=== PATIENT | male | born 1960 | race Caucasian/White ===

== ENCOUNTER 2020-12-06 15:39 | Emergency (ER) | payer BC ==
[~2020-12-06] VITALS: Ht 172.7 cm; Wt 131.8 kg
[2020-12-06 15:47] VITALS: Ht 172.7 cm; Wt 131.8 kg
[2020-12-06 16:09] LABS: BASOPHILS 0.6 % (0-2); EOSINOPHILS 0.3 % (0-7); HEMATOCRIT 42.3 % (42.0-54.0); LYMPHOCYTES 9.3 % (15-50); MCH 28.3 pg (26.0-34.0); MCHC 33.1 g/dL (31.0-37.0); MCV 85.7 fL (80.0-100.0); MEAN PLATELET VOLUME 6.8 fL (7.4-10.4); MONOCYTES 7.3 % (2-11); NEUTROPHILS 82.5 % (40-80); PLATELET COUNT 217 10x3/uL (130-400); RBC 4.93 10x6/uL (4.20-6.10); RDW 15.3 % (11.5-14.5)
[2020-12-06 16:17] LABS: APTT 24.9 SECONDS (22.8-39.4); INR 1.25 (0.85-1.17); PROTIME 14.5 SECONDS (11.6-15.0)
[2020-12-06 16:21] LABS: CALC OSMOLALITY 287 mosm/kg (275-300); CALCIUM 9.2 mg/dL (8.5-10.1); CARBON DIOXIDE 25.8 mmol/L (21.0-32.0); CHLORIDE - SERUM 103 mmol/L (98-107); CREATININE - SERUM 1.3 mg/dL (0.6-1.3); GLUCOSE 158 mg/dL (74-106); POTASSIUM - SERUM 3.6 mmol/L (3.5-5.1); SODIUM 141 mmol/L (136-145); UREA NITROGEN 25 mg/dL (7-18); eGFR NON AFRICAN AMERICAN 59 mL/min (90-120)
[2020-12-06 16:36] LABS: ALBUMIN 3.9 g/dL (3.4-5.0); ALKALINE PHOSPHATASE 66 U/L (30-120); ALT (SGPT) 111 U/L (10-68); BILIRUBIN - TOTAL 0.29 mg/dL (0.2-1.3); CKMB 7.7 U/L (0.0-3.6); MAGNESIUM - SERUM 2.5 mg/dL (1.8-2.4); PROTEIN - SERUM 7.5 g/dL (6.4-8.2); THYROID STIMULATING HORMONE 0.91 uIU/mL (0.36-3.74)
[2020-12-06 16:38] LABS: CREATINE KINASE 1428 UL (21-232); TROPONIN-I < 0.017 ng/mL (0.000-0.060)
[2020-12-06 17:16] LABS: BILIRUBIN NEGATIVE (NEGATIVE); KETONE NEGATIVE (NEGATIVE); NITRITE NEGATIVE (NEGATIVE); UROBILINOGEN NORMAL mg/dL (< 2)
[2020-12-06 17:33] LABS: UDS - AMPHET NEGATIVE QUAL (NEGATIVE); UDS - BARB NEGATIVE QUAL (NEGATIVE); UDS - BENZO NEGATIVE QUAL (NEGATIVE); UDS - COCAINE NEGATIVE QUAL (NEGATIVE); UDS - OPIATE NEGATIVE QUAL (NEGATIVE); UDS - PCP NEGATIVE QUAL (NEGATIVE); UDS - THC NEGATIVE QUAL (NEGATIVE)
[2020-12-06] MEDS ORDERED: LIPITOR20 MG PO (18:40)
[2020-12-06] MEDS ORDERED: TRAZODONE HCL100 MG PO (18:41)
[2020-12-06] MEDS ORDERED: TEMAZEPAM30 MG PO (18:41)
[2020-12-06] MEDS ORDERED: VITAMIN B-6100 MG PO (18:42)
[2020-12-06] MEDS ORDERED: CENTRUM MEN'S1 EACH PO (18:43)
[2020-12-06 22:43] VITALS: BP 157/85
== END 2020-12-06 22:09 ==
LOC: D.ER 15:39
PROVIDERS: Family Medicine
DX: R56.9 Unspecified convulsions (principal); M25.512 Pain in left shoulder; M62.82 Rhabdomyolysis; R11.2 Nausea with vomiting, unspecified

== ENCOUNTER 2020-12-13 10:57 | Emergency (ER) | payer BC ==
[~2020-12-13] VITALS: Ht 172.7 cm; Wt 131.8 kg
[~2020-12-13 10:57] MED LIST: CENTRUM MEN'S1 EACH PO; LIPITOR20 MG PO; TEMAZEPAM30 MG PO; TRAZODONE HCL100 MG PO; VITAMIN B-6100 MG PO
[2020-12-13 11:02] VITALS: BP 180/93; Ht 172.7 cm; Wt 131.8 kg
[2020-12-13] MEDS ORDERED: KEPPRA750 MG PO ×2 (11:05→12:01)
[2020-12-13 11:16] LABS: BASOPHILS 0.9 % (0-2); HEMATOCRIT 47.8 % (42.0-54.0); HEMOGLOBIN 15.3 g/dL (13.5-17.5); LYMPHOCYTES 37.2 % (15-50); MCH 28.2 pg (26.0-34.0); MCV 88.2 fL (80.0-100.0); MEAN PLATELET VOLUME 6.9 fL (7.4-10.4); MONOCYTES 8.3 % (2-11); NEUTROPHILS 51.6 % (40-80); RBC 5.42 10x6/uL (4.20-6.10); RDW 15.2 % (11.5-14.5); WBC 13.2 10x3/uL (4.8-10.8)
[2020-12-13 11:26] LABS: ANION GAP 29.8 mmol/L (8-16); CALCIUM 9.6 mg/dL (8.5-10.1); CARBON DIOXIDE 13.9 mmol/L (21.0-32.0); CREATININE - SERUM 1.4 mg/dL (0.6-1.3); POTASSIUM - SERUM 3.7 mmol/L (3.5-5.1)
[2020-12-13 11:33] LABS: BILIRUBIN - TOTAL 0.41 mg/dL (0.2-1.3); PROTEIN - SERUM 8.4 g/dL (6.4-8.2)
[2020-12-13 11:35] LABS: PLATELET COUNT 340 10x3/uL (130-400)
[2020-12-13 12:34] LABS: BACTERIA FEW HPF (NONE SEEN); BILIRUBIN NEGATIVE (NEGATIVE); KETONE NEGATIVE (NEGATIVE); NITRITE NEGATIVE (NEGATIVE); SQUAMOUS EPITHELIAL RARE HPF (0-4); UROBILINOGEN NORMAL mg/dL (< 2); WHITE CELLS - URINE RARE HPF (0-1)
== END 2020-12-13 12:19 | disposition home or self-care (01) ==
LOC: D.ER 10:57
PROVIDERS: Emergency Medicine
DX: R56.9 Unspecified convulsions (principal)

== ENCOUNTER 2021-01-03 19:10 | Inpatient (IN) | payer OTHER, BC ==
[~2021-01-03] VITALS: Ht 172.7 cm; Wt 131.5 kg
[~2021-01-03 19:10] MED LIST changes: +KEPPRA750 MG PO
[2021-01-03 20:07] LABS: BASOPHILS 0.9 % (0-2); EOSINOPHILS 2.9 % (0-7); HEMATOCRIT 40.8 % (42.0-54.0); HEMOGLOBIN 13.8 g/dL (13.5-17.5); LYMPHOCYTES 25.9 % (15-50); MCH 28.7 pg (26.0-34.0); MCHC 33.7 g/dL (31.0-37.0); MEAN PLATELET VOLUME 6.7 fL (7.4-10.4); MONOCYTES 7.9 % (2-11); NEUTROPHILS 62.4 % (40-80); RDW 14.9 % (11.5-14.5); WBC 6.9 10x3/uL (4.8-10.8)
[2021-01-03 20:11] LABS: PLATELET COUNT 209 10x3/uL (130-400)
[2021-01-03] MEDS ORDERED: ASPIRIN81 MG PO (20:15)
[2021-01-03 20:16] LABS: APTT 26.8 SECONDS (22.8-39.4); INR 1.13 (0.85-1.17); PROTIME 13.5 SECONDS (11.6-15.0)
[2021-01-03] MEDS ORDERED: CALCIUM 500 +1 EAC3 PO (20:16)
[2021-01-03] MEDS ORDERED: PROTONIX20 MG PO (20:17)
[2021-01-03 20:18] LABS: D-DIMER-QUANTITATIVE 0.42 ug/mLFEU (0.20-0.54)
[2021-01-03] MEDS ORDERED: UNISOM SLEEP AI25 MG PO (20:18)
[2021-01-03 20:20] LABS: CALC OSMOLALITY 285 mosm/kg (275-300); CALCIUM 8.5 mg/dL (8.5-10.1); CARBON DIOXIDE 26.5 mmol/L (21.0-32.0); CHLORIDE - SERUM 106 mmol/L (98-107); GLUCOSE 97 mg/dL (74-106); POTASSIUM - SERUM 3.8 mmol/L (3.5-5.1); SODIUM 142 mmol/L (136-145); UREA NITROGEN 22 mg/dL (7-18); eGFR NON AFRICAN AMERICAN 80 mL/min (90-120)
[2021-01-03 20:30] VITALS: BP 168/80
[2021-01-03 20:38] LABS: ALBUMIN 3.7 g/dL (3.4-5.0); ALKALINE PHOSPHATASE 64 U/L (30-120); ALT (SGPT) 131 U/L (10-68); BILIRUBIN - TOTAL 0.32 mg/dL (0.2-1.3); C-REACTIVE PROTEIN 0.9 mg/dL (0.0-0.9); PRO BNP 26 pg/mL (0-125); PROTEIN - SERUM 7.5 g/dL (6.4-8.2); THYROID STIMULATING HORMONE 2.29 uIU/mL (0.36-3.74); TROPONIN-I < 0.017 ng/mL (0.000-0.060)
[2021-01-03 21:30] VITALS: BP 152/95
[2021-01-03 22:30] VITALS: BP 130/103
[2021-01-03 23:30] VITALS: BP 158/81
[2021-01-04] VITALS (9 sets, daily range): BP systolic 100–171; BP diastolic 60–103; BMI 44.1
[2021-01-04 09:39] LABS: BASOPHILS 0.3 % (0-2); EOSINOPHILS 0 % (0-7); HEMATOCRIT 42.5 % (42.0-54.0); HEMOGLOBIN 14.4 g/dL (13.5-17.5); LYMPHOCYTES 8.6 % (15-50); MCH 28.9 pg (26.0-34.0); MCHC 33.9 g/dL (31.0-37.0); MCV 85.4 fL (80.0-100.0); MEAN PLATELET VOLUME 6.7 fL (7.4-10.4); MONOCYTES 0.5 % (2-11); NEUTROPHILS 90.6 % (40-80); PLATELET COUNT 238 10x3/uL (130-400); RBC 4.97 10x6/uL (4.20-6.10); RDW 14.8 % (11.5-14.5); WBC 8.2 10x3/uL (4.8-10.8)
[2021-01-04 09:47] LABS: INR 1.16 (0.85-1.17); PROTIME 13.7 SECONDS (11.6-15.0)
[2021-01-04 09:54] LABS: ALBUMIN 3.6 g/dL (3.4-5.0); ANION GAP 14.8 mmol/L (8-16); BILIRUBIN - TOTAL 0.48 mg/dL (0.2-1.3); CALCIUM 8.7 mg/dL (8.5-10.1); CREATININE - SERUM 1.2 mg/dL (0.6-1.3); POTASSIUM - SERUM 3.8 mmol/L (3.5-5.1); PROTEIN - SERUM 7.4 g/dL (6.4-8.2)
[2021-01-04 20:30] LABS: BILIRUBIN NEGATIVE (NEGATIVE); KETONE NEGATIVE mg/dL (< 1+); NITRITE NEGATIVE (NEGATIVE); PH 5.5 (5.0-8.0); SQUAMOUS EPITHELIAL <1 HPF (0-4); UROBILINOGEN NORMAL mg/dL (< 2); WHITE CELLS - URINE 1 HPF (0-1)
[2021-01-04] MEDS ORDERED: TRAZODONE HCL100 MG PO (22:14)
[2021-01-05] VITALS (13 sets, daily range): BP systolic 103–146; BP diastolic 56–85
[2021-01-05 05:28] LABS: BASOPHILS 0.1 % (0-2); EOSINOPHILS 0 % (0-7); HEMATOCRIT 40.7 % (42.0-54.0); HEMOGLOBIN 13.6 g/dL (13.5-17.5); LYMPHOCYTES 6.7 % (15-50); MCH 28.8 pg (26.0-34.0); MCHC 33.5 g/dL (31.0-37.0); MCV 85.9 fL (80.0-100.0); MEAN PLATELET VOLUME 6.9 fL (7.4-10.4); MONOCYTES 2.3 % (2-11); NEUTROPHILS 90.9 % (40-80); PLATELET COUNT 244 10x3/uL (130-400); RBC 4.74 10x6/uL (4.20-6.10)
[2021-01-05 05:43] LABS: WBC 14.7 10x3/uL (4.8-10.8)
[2021-01-05 06:20] LABS: ALBUMIN 3.7 g/dL (3.4-5.0); ALKALINE PHOSPHATASE 71 U/L (30-120); ALT (SGPT) 115 U/L (10-68); BILIRUBIN - TOTAL 0.29 mg/dL (0.2-1.3); CALC OSMOLALITY 290 mosm/kg (275-300); CALCIUM 8.9 mg/dL (8.5-10.1); CARBON DIOXIDE 22.8 mmol/L (21.0-32.0); CHLORIDE - SERUM 108 mmol/L (98-107); POTASSIUM - SERUM 4.2 mmol/L (3.5-5.1); PROTEIN - SERUM 7.6 g/dL (6.4-8.2); SODIUM 143 mmol/L (136-145); UREA NITROGEN 23 mg/dL (7-18); eGFR NON AFRICAN AMERICAN 80 mL/min (90-120)
[2021-01-05 06:31] LABS: GLUCOSE 139 mg/dL (74-106)
--- NOTE | 2021-01-05 07:00 | NUR ---
PATIENT LEFT WITH STAFF FOR SURGERY WITH CONSENTS SIGNED. STABLE AT TIME OF LEAVING FLOOR. MEDICATIONS AND BELONGINGS TAKEN TO ICU 7 DUE TO TRANSFER POST SURGERY.
[2021-01-06] VITALS (13 sets, daily range): BP systolic 123–167; BP diastolic 66–103
--- NOTE | 2021-01-06 08:00 | NUR ---
ALERT AND ORIENTED X4. GOOD ROM OF EXT. 4. JOSHUA INTACT TO SCALP. DENIES ANY PAIN OR DISOCMFORT. HAND GRASP EQUAL. ENCOURAGED TO USE CALL LIGHT FOR ASSSIT. IVF AND MONITORING AT THIS TIME ARTIRIAL LINE INTACT.
[2021-01-06 08:05] LABS: ALBUMIN 3.3 g/dL (3.4-5.0); ALKALINE PHOSPHATASE 59 U/L (30-120); ALT (SGPT) 98 U/L (10-68); BILIRUBIN - TOTAL 0.31 mg/dL (0.2-1.3); CALC OSMOLALITY 293 mosm/kg (275-300); CALCIUM 8.4 mg/dL (8.5-10.1); CARBON DIOXIDE 26.4 mmol/L (21.0-32.0); CHLORIDE - SERUM 110 mmol/L (98-107); CREATININE - SERUM 0.9 mg/dL (0.6-1.3); GLUCOSE 118 mg/dL (74-106); POTASSIUM - SERUM 3.8 mmol/L (3.5-5.1); PROTEIN - SERUM 6.6 g/dL (6.4-8.2); SODIUM 145 mmol/L (136-145); UREA NITROGEN 25 mg/dL (7-18); eGFR NON AFRICAN AMERICAN > 90 mL/min (90-120)
[2021-01-06 08:15] LABS: BASOPHILS 0.1 % (0-2); EOSINOPHILS 0 % (0-7); HEMATOCRIT 36.9 % (42.0-54.0); HEMOGLOBIN 12.2 g/dL (13.5-17.5); LYMPHOCYTES 5.6 % (15-50); MCH 28.3 pg (26.0-34.0); MEAN PLATELET VOLUME 7.3 fL (7.4-10.4); MONOCYTES 5.4 % (2-11); NEUTROPHILS 88.9 % (40-80); PLATELET COUNT 218 10x3/uL (130-400); RBC 4.29 10x6/uL (4.20-6.10); RDW 15.3 % (11.5-14.5); WBC 15.3 10x3/uL (4.8-10.8)
--- NOTE | 2021-01-06 10:00 | NUR ---
DR. MONCADA HERE WITH NEW ORDERS NOTED. GODINEZ CATH DISCONTINUED AND ARTERIAL LINE DISCOMTINUED WITH PRESSURE DRESSING TO RIGHT WRIST. STANDING AT BEDSIDE WITH GOOD TRUNK CONTROL AND AMBULATING WITH SBA. DENIES ANY VERTIGO AT THIS TIME.ENCOURAGED TO USE CALL LIGHT FOR ASSIT.
--- NOTE | 2021-01-06 12:15 | NUR ---
REPORT CALLED TO HAROON REYES. TRANSFERED TO 2225. STABLE AT TIME OF TRANSFER NORCO GIVEN FOR PAIN 12/28.
--- NOTE | 2021-01-06 12:45 | NUR ---
RECEIVED TO ROOM 2225 VIA WC FROM ICU. A/O X3. BALANCE IS GOOD WTIH TRANSFER. AT BEDSIDE. DENIES NEEDS.
--- NOTE | 2021-01-06 17:15 | NUR ---
CALLED TO ROOM. PATIENT HAVING SEIZURE LIKE ACTIVITY, NO RESPONSIVE AND TENSED UPWITH JAW CLAMPED. C/O UNABLE TO BREATHE. BP 189/103 AT THIS TIME. GIVEN ATIVAN IVP FOR SEIZURES. DR. MONCADA NOTIFIED OF ACTIVITY. NEW ORDERS RECEIVED. NOTIFIED OF SAME.
--- NOTE | 2021-01-06 18:21 | NUR ---
SITTING UP ON SIDE OF BED COMPLETELY RESPONSIVE TO STAFF. DENIES NEEDS. NO CHANGES NOTED.
--- NOTE | 2021-01-06 20:30 | NUR ---
PATIENT UPSET AND AGITATED. STATES HE NEEDS SLEEP AND NEEDS HIS HOME MEDS. WANTS TELEMENTRY TAKEN OFF. STATES. "DONT HAVE HEART PROBLEMS,TAKE IT OFF". TELEMENTRY REMOVED PER PATIENT REQUEST AND RETURNED TO CELERY TIER IN ICU. DIRECTOR OF TAX SERVICES CALLED AND ORDERS RECEIVED TO RESTAT HOME MED TRAZADONE AND RESTORIL. PATIENT INFORMED
--- NOTE | 2021-01-06 23:30 | NUR ---
I have reviewed this patient and I concur with the Shift Assessment completed by the Licensed Practical Nurse today this shift.
[2021-01-07] VITALS: BP 107/49
[2021-01-07 04:00] VITALS: BP 133/65
[2021-01-07 06:09] LABS: BASOPHILS 0 % (0-2); EOSINOPHILS 0 % (0-7); HEMATOCRIT 36.3 % (42.0-54.0); MCH 28.4 pg (26.0-34.0); MCV 86.1 fL (80.0-100.0); MEAN PLATELET VOLUME 7.1 fL (7.4-10.4); MONOCYTES 5.8 % (2-11); NEUTROPHILS 84.2 % (40-80); PLATELET COUNT 192 10x3/uL (130-400); RBC 4.21 10x6/uL (4.20-6.10); RDW 15.4 % (11.5-14.5); WBC 11.5 10x3/uL (4.8-10.8)
--- NOTE | 2021-01-07 07:40 | NUR ---
IN BED SITTING UP. AT BEDSIDE. BED LOW POSITION, CALL LIGHT IN REACH. IV INFUSING PER MAR. DENIES NEEDS AT THIS TIME. WILL CONTINUE TO MONITOR.
[2021-01-07 07:57] LABS: ALBUMIN 3.1 g/dL (3.4-5.0); ALKALINE PHOSPHATASE 61 U/L (30-120); ALT (SGPT) 100 U/L (10-68); BILIRUBIN - TOTAL 0.31 mg/dL (0.2-1.3); CALC OSMOLALITY 288 mosm/kg (275-300); CALCIUM 8.6 mg/dL (8.5-10.1); CARBON DIOXIDE 27.5 mmol/L (21.0-32.0); CHLORIDE - SERUM 108 mmol/L (98-107); CREATININE - SERUM 0.8 mg/dL (0.6-1.3); GLUCOSE 121 mg/dL (74-106); POTASSIUM - SERUM 3.7 mmol/L (3.5-5.1); PROTEIN - SERUM 6.7 g/dL (6.4-8.2); SODIUM 143 mmol/L (136-145); UREA NITROGEN 22 mg/dL (7-18); eGFR NON AFRICAN AMERICAN > 90 mL/min (90-120)
[2021-01-07 08:27] VITALS: BP 109/46
[2021-01-07 13:02] VITALS: BP 121/77
--- NOTE | 2021-01-07 15:18 | NUR ---
PATIENT CALLED NURSE IN TO ROOM BECAUSE HE DEVELOPED A BLACK EYE ON THE RIGHT SIDE. WHEN INQUIRED ABOUT IF ANYTHING HAPPEND, PATIENT STATED HE COULD HAVE ROLLED IN TO THE BED RAIL WHILE HE WAS SLEEPING. DENIES ANY PAIN AT THIS TIME AND REFUSED AN ICE PACK. SJ SAID SHE DID NOT NOTICE IT YESTERDAY AND ONLY NOTICED IT STARTING THIS AFTERNOON. DENIES CHANGES IN VISION. ALERT AND ORIENTED. FREE FROM SIGNS OF DISTRESS.
--- NOTE | 2021-01-07 17:28 | NUR ---
CHECKED ON PATIENT RIGHT EYE. LOOKS SLIGHTLY MORE RED. LU DEE APN LOOKED AT THE EYE. PT DENIES VISUAL CHANGES. SENT DR. MONCADA A TEXT INFORMING HIM.
[2021-01-07 20:00] VITALS: BP 155/77
--- NOTE | 2021-01-07 20:15 | NUR ---
SITTING UP ON SIDE OF BED. COMPLAINTS OF INCISIONAL PAIN. NORCO 2 TABS GIVEN PER MAR. CLIPS INTACT TO TOP OF HEAD WITHOUT REDNESS OR EDEMA NOTED. NO DRAINAGE NOTED. RIGHT EYE WITH BRUSING AND EDEMA NOTED. AT BEDSIDE.
[2021-01-08] VITALS: BP 113/62
--- NOTE | 2021-01-08 02:08 | NUR ---
I have reviewed this patient and I concur with the Shift Assessment completed by the Licensed Practical Nurse today this shift.
[2021-01-08 04:00] VITALS: BP 138/73
[2021-01-08 06:06] LABS: BASOPHILS 0.1 % (0-2); EOSINOPHILS 0 % (0-7); HEMATOCRIT 36.5 % (42.0-54.0); HEMOGLOBIN 12.2 g/dL (13.5-17.5); LYMPHOCYTES 12.3 % (15-50); MCH 28.6 pg (26.0-34.0); MCHC 33.4 g/dL (31.0-37.0); MCV 85.5 fL (80.0-100.0); MEAN PLATELET VOLUME 7.4 fL (7.4-10.4); MONOCYTES 7.3 % (2-11); NEUTROPHILS 80.3 % (40-80); PLATELET COUNT 192 10x3/uL (130-400); RBC 4.27 10x6/uL (4.20-6.10); RDW 14.8 % (11.5-14.5); WBC 9.4 10x3/uL (4.8-10.8)
[2021-01-08 06:44] LABS: ALBUMIN 2.8 g/dL (3.4-5.0); ALKALINE PHOSPHATASE 57 U/L (30-120); BILIRUBIN - TOTAL 0.32 mg/dL (0.2-1.3); CALC OSMOLALITY 290 mosm/kg (275-300); CARBON DIOXIDE 26.8 mmol/L (21.0-32.0); CHLORIDE - SERUM 108 mmol/L (98-107); CREATININE - SERUM 0.9 mg/dL (0.6-1.3); GLUCOSE 128 mg/dL (74-106); POTASSIUM - SERUM 3.6 mmol/L (3.5-5.1); PROTEIN - SERUM 6.3 g/dL (6.4-8.2); SODIUM 143 mmol/L (136-145); UREA NITROGEN 23 mg/dL (7-18); eGFR NON AFRICAN AMERICAN > 90 mL/min (90-120)
[2021-01-08 06:45] LABS: ALT (SGPT) 128 U/L (10-68)
[2021-01-08 09:25] VITALS: BP 137/80
[2021-01-08 12:45] VITALS: BP 141/69
--- NOTE | 2021-01-08 12:50 | NUR ---
I have reviewed this patient and I concur with the Shift Assessment completed by the Licensed Practical Nurse today this shift.
--- NOTE | 2021-01-08 14:10 | NUR ---
WALKED 250FT CGA
[2021-01-08 14:32] VITALS: Ht 172.7 cm; Wt 131.5 kg
[2021-01-08] MEDS ORDERED: HCTZ25 MG PO (15:01)
[2021-01-08] MEDS ORDERED: KEPPRA1000 MG PO (15:01)
[2021-01-08] MEDS ORDERED: PREDNISONE10 MG PO (15:02)
--- NOTE | 2021-01-08 16:07 | MORECARE ---
CASE MANAGEMENT DISCHARGE SUMMARY PATIENT: EMILIE MARMOLEJO UNIT: [id number] ADM DATE: 01/03/21 AGE: 60 : 56 SEX: M ROOM/BED: D.2225 AUTHOR: KIM,DOC PHYSICIAN: REFERRING PHYSICIAN: SANDY LEE DO DATE OF SERVICE: 01/08/21 Case Management Discharge Planning Summary COMMENTS ENTERED DATE: 01/08/21 16:03 CT COMMENT TYPE: Discharge Planning REVIEWER: Minnie Mena CM met with patient at bedside after obtaining verbal consent. CM discussed availability / needs of home health, REHAB and medical equipment. Patient has VA benefits. I have talked with Brandon at the [place] at [phone]. They will get home health pt and ot set up for patient. I am faxing orders to her at [phone]. Patient has cane at home and states no other needs. DCP REVIEW SUMMARY ANTICIPATED D/C DATE: EXPECTED LOS : CASE STATUS: DCP Initiated INITIAL REVIEW: 01/03/2021 INITIAL REVIEWER: Minnie Mena FINAL DISCHARGE DISPOSITION: : FINAL REVIEWER: FINAL REVIEW DATE: DCP Focus Questions & Answers DCP Screen QUESTION: ANSWER High Risk Factors: : Hosp related to CHF, COPD, DM, End Stage Ds, CVA, CA DCP Evaluation QUESTION: ANSWER Patient's ability to cope with chronic illness : d. No chronic illness Would patient like to participate in any Care Coordination programs (if applicable): : Not applicable Mental health screen: : No mental health history DCP Re-evaluation QUESTION: ANSWER Would patient like to participate in any Care Coordination programs (if applicable): : Not applicable PATIENT: EMILIE MARMOLEJO ENCOUNTER: [id number] MEDICAL RECORD#: [id number] ADMISSION DATE: 01/03/2021 DISCHARGE DATE: ATTENDING MD: SANDY ALCANTAR : AGE: 60 MARITAL STATUS: M DC PLAN ID: [id number] FACILITY: [facility] PRINTED ON: 01/08/21 16:07 CT All edits/amendments must be made on the electronic document DICTATION DATE: 01/08/211606 REAL ESTATE SALESPERSON: TRU 01/08/211606 RPT#: [id number] DC DATE: STATUS: ADM IN [facility] [address] [place] [address] END OF REPORT
--- NOTE | 2021-01-08 16:29 | NUR ---
OT NOTE: CHECKED ON PT THIS DATE..PT RECENTLY HAD CRANIOTOMY WITH EXCISION OF TUMOR ON 01/06. PRIOR TO SURGERY, PTS L HAND WAS MODERATELY EFFECTED. PT HAD GOOD MOVEMENT AND GOOD BRAKER PASSENGER TRAIN STRENGTH, HOWEVER, HIS COORDINATION WAS IMPAIRED IN L HAND. TODAY PT PRESENTS WITH CONTINUED IMPAIREMENT IN COORDINATION AND FINE MOTOR SKILLS. CONTINUES TO EXHIBIT GOOD BRAKER PASSENGER TRAIN STRENGTH, BUT FINE MOTOR SKILLS ARE SLIGHTLY IMPAIRED. D/W PT AND , AND WILL PROVIDE FINE MOTOR COORDINATION EXS FOR PT, HE IS TO BE DCD TODAY. CHAVA TORRES, OTR/L
--- NOTE | 2021-01-08 16:39 | NUR ---
PATIENT DC HOME, WENT OVER PATIENT DC PAPERWORK AND FOLLOW UP APPOINTMENTS, CALLED DR MONCADA'S OFFICE IN [facility] TO SCRIPT, IV DC WITH CATHETER INTACT, PATIENT ROLLED DOWN IN WC BY ENGINEERING TECHNICIAN PARKING AND PATIENT
--- NOTE | 2021-01-08 19:03 | NUR ---
OT NOTE: PT COMPLETED ADL MOB WITH SBA-CGA. PT COMPLETED TOILETING WITH SBA. PT COMPLETED CLOTHING MANAGEMENT WITH SBA. PT REQUIRED MIN A FOR DONNING SOCKS. PT COMPLETED HAIR GROOMING AT SINK WITH SBA-CGA. PT COMPLETED ORAL CARE WITH SBA-CGA. [phone] THANK YOU, MERLE LOPEZ
--- NOTE | 2021-01-09 16:28 | MORECARE ---
CASE MANAGEMENT DISCHARGE SUMMARY PATIENT: EMILIE MARMOLEJO UNIT: [id number] ADM DATE: 01/03/21 AGE: 60 : 56 SEX: M ROOM/BED: D.2225 AUTHOR: KIM,DOC PHYSICIAN: REFERRING PHYSICIAN: SANDY LEE DO DATE OF SERVICE: 01/09/21 Case Management Discharge Planning Summary COMMENTS ENTERED DATE: 01/08/21 16:03 CT COMMENT TYPE: Discharge Planning REVIEWER: Minnie Mena CM met with patient at bedside after obtaining verbal consent. CM discussed availability / needs of home health, REHAB and medical equipment. Patient has VA benefits. I have talked with Brandon at the [place] at [phone]. They will get home health pt and ot set up for patient. I am faxing orders to her at [phone]. Patient has cane at home and states no other needs. DCP REVIEW SUMMARY ANTICIPATED D/C DATE: EXPECTED LOS : CASE STATUS: DCP Complete INITIAL REVIEW: 01/03/2021 INITIAL REVIEWER: Minnie Mena FINAL DISCHARGE DISPOSITION: : FINAL REVIEWER: FINAL REVIEW DATE: DCP Focus Questions & Answers DCP Screen QUESTION: ANSWER High Risk Factors: : Hosp related to CHF, COPD, DM, End Stage Ds, CVA, CA DCP Evaluation QUESTION: ANSWER Patient's ability to cope with chronic illness : d. No chronic illness Would patient like to participate in any Care Coordination programs (if applicable): : Not applicable Mental health screen: : No mental health history DCP Re-evaluation QUESTION: ANSWER Would patient like to participate in any Care Coordination programs (if applicable): : Not applicable PATIENT: EMILIE MARMOLEJO ENCOUNTER: [id number] MEDICAL RECORD#: [id number] ADMISSION DATE: 01/03/2021 DISCHARGE DATE: 01/08/2021 ATTENDING MD: SANDY ALCANTAR : AGE: 60 MARITAL STATUS: M DC PLAN ID: [id number] FACILITY: [facility] PRINTED ON: 01/09/21 16:27 CT All edits/amendments must be made on the electronic document DICTATION DATE: 01/09/211626 ESL INSTRUCTOR: TRU 01/09/211626 RPT#: [id number] DC DATE:01/08/21 STATUS: DIS IN [facility] [address] [place] [address] END OF REPORT
--- NOTE | 2021-01-10 09:15 | OP ---
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 POSTOPERATIVE DIAGNOSIS: Right posterior frontal brain tumor. PROCEDURE: Right frontal craniotomy for resection of brain tumor. DESCRIPTION OF TECHNIQUE: After induction of general endotracheal anesthesia, the patient was placed in Hernandez head pins. The scalp was prepped and draped in the usual sterile fashion. After infiltration of 1:100,000 epinephrine with 1% lidocaine, bicoronal incision was carried out primarily on the right side. Randy clips applied to the scalp for hemostasis. Several jae holes were created along the midline and then 2 were created 4 cm off the midline. The jae holes were connected with a [employer] drill with a side cutting bur. The skull flap was elevated without difficulty. The dura was opened in a cruciate manner with bipolar cautery and #11 blade. Upon opening the dura, there was obvious tumor on the surface of one particular gyrus. The ame was cauterized. 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 Next, a CUSA aspirator and magnification were used to remove the entirety of the tumor until the interface between the tumor and edematous white matter was obtained throughout the entire perimeter. A gross total resection was obtained. Meticulous hemostasis was maintained throughout the wound. The wound was irrigated with copious amounts of lukewarm saline irrigant solution. The dura was reapproximated with interrupted 4-0 Nurolon suture. The skull flap was replaced with titanium plates and screws. The scalp was reapproximated with interrupted 2-0 Vicryl suture. The skin was closed with alison. A sterile dressing was applied to the wound. The patient was awakened in good condition and taken to recovery. All counts were reported as correct. Estimated blood loss was minimal. TRANSINT:[id number] Voice Confirmation ID: [id number] DOCUMENT ID: [id number] GIULIANA MONCADA MD at 0915 CC: [id number] DICTATION DATE: 01/08/2137 [employer]: 01/08/21 0953 DIS IN 01/08/21 [facility] [address] [facility] [place] [address]
== END 2021-01-08 16:43 | disposition home or self-care (01) | DRG 55 ==
LOC: D.ER 19:10 → D.EDHOLD 20:34 → D.MS 20:34 → D.ICU 01-05 13:13 → D.MS 01-06 12:20
PROVIDERS: Family Medicine; ADMIT Family Medicine; ATTEND Family Medicine
DX: D49.6 Neoplasm of unspecified behavior of brain (principal); I10 Essential (primary) hypertension; I45.4 Nonspecific intraventricular block; H40.9 Unspecified glaucoma; M19.90 Unspecified osteoarthritis, unspecified site; G47.00 Insomnia, unspecified; R56.9 Unspecified convulsions